=== PATIENT | female | born 1955 | race American Indian/Alaskan Native ===

== ENCOUNTER 2018-08-26 18:58 | Emergency (ER) | payer BC, OTHER ==
[2018-08-26] MEDS ORDERED: Sodium Chloride 0.9% 1,000 ML ONE (19:19)
[2018-08-26] MEDS ORDERED: Sodium Chloride 0.9% 1,000 ML IV ONE (19:20)
[2018-08-26] MEDS ORDERED: Sodium Chloride 0.9% 10 ML Syringe FLUSH PRN (19:32)
--- NOTE | 2018-08-26 20:01 | EDM.PDOC ---
Addendum entered and electronically signed by Juvencio Oglesyb MD 08/27/18 15:14 : The patient was having some withdrawal symptoms at the [facility] so I sent over some ativan and zofran to the pharmacy. Original Note: ED HPI GENERAL MEDICAL PROBLEM <Kb Venegas - Last Filed: 08/27/18 01:36> <Juvencio Oglesby - Last Filed: 08/27/18 12:31> - General Source of Information: Reports: Patient, EMS History Limitations: Reports: Altered Mental Status, Intoxication <Geeta Santana - Last Filed: 08/28/18 12:47> - General Chief Complaint: Neurological Problem Stated Complaint: [facility] Time Seen by Provider: 08/26/18 19:31 - History of Present Illness INITIAL COMMENTS - FREE TEXT/NARRATIVE: 53-year-old female is brought in by [facility]. Patient is unable to provide any reliable history. She believes she is in [place]. She knows her name and date of but does not know the month, date or year. She does not know that she is in the hospital nor additional that she is in [place]. Per EMS she was found wandering around gas station. History that she had fallen. She is intoxicated. patient has never been seen on her hospital before. We have no history on her. She is not reliable historian. She answers yes to all questions and says she "loves me" on multiple occasions. (Geeta Santana) - Related Data Allergies Allergy/AdvReac Type Severity Reaction Status Date / Time fluoxetine [From Prozac] Allergy Cannot Verified 08/26/18 19:08 Remember iodine Allergy Cannot Verified 08/26/18 19:08 Remember procaine [From Novocain] Allergy Cannot Verified 08/26/18 19:08 Remember Home Meds: Home Meds LORazepam [Ativan] 1 mg PO DAILY #18 tablet 08/27/18 [Rx] Ondansetron [Zofran ODT] 4 mg PO Q6H PRN #20 tab.dis 08/27/18 [Rx] Past Medical History - Past Surgical History Female Surgical History: Reports: Hysterectomy <Geeta Santana - Last Filed: 08/28/18 12:47> Social & Family History - Tobacco Use Smoking Status *Q: Never Smoker Second Hand Smoke Exposure: No - Caffeine Use Caffeine Use: Reports: None - Recreational Drug Use Recreational Drug Use: No <MaxGeeta - Last Filed: 08/28/18 12:47> ED ROS GENERAL - Review of Systems Review Of Systems: Unable To Obtain <DebbiesummerGeeta cullen - Last Filed: 08/28/18 12:47> - Physical Exam Exam: See Below Exam Limited By: Intoxication General Appearance: Alert, WD/WN, No Apparent Distress Eye Exam: Bilateral Eye: Other (Right pupil is reactive to light, left pupil is sluggish to react to light, pupils are equal and round) Ears: Normal External Exam, Normal Canal, Hearing Grossly Normal, Normal TMs, Other (No hemotympanums) Nose: Normal Inspection, No Blood Throat/Mouth: Normal Inspection, Normal Lips, Normal Oropharynx, Normal Voice, No Airway Compromise Head Exam: Atraumatic, Normocephalic Neck: Normal Inspection, Supple, Non-Tender, Full Range of Motion Respiratory/Chest: No Respiratory Distress, Lungs Clear, Normal Breath Sounds, Chest Non-Tender Cardiovascular: Normal Peripheral Pulses, Regular Rate, Rhythm, No Murmur GI/Abdominal: Normal Bowel Sounds, Soft, Non-Tender Neuro Exam (Abbreviated): Alert, Confused, Other (Patient is orientated to person but not place or time) Extremities: Normal Inspection (No obvious abnormalities to the extremities), Limited Range of Motion (Right shoulder) Skin Exam: Warm, Dry, Normal Color <MaxJonaa Kimberlyn - Last Filed: 08/28/18 12:47> EKG INTERPRETATION <Kb Venegas - Last Filed: 08/27/18 01:36> <Juvencio Oglesby - Last Filed: 08/27/18 12:31> EKG Date: 08/26/18 Time: 19:47 Rhythm: NSR Rate (Beats/Min): 69 [place]: Normal P-Wave: Present QRS: Normal ST-T: Normal QT: Normal Comparison: NA - No Prior EKG <MaxGeeta Kimberlyn - Last Filed: 08/28/18 12:47> EKG Interpretation Comments: NSR at 69 bpm. No acute changes. Reviewed by myself and Dr. Venegas. (Geeta Santana) Course <KeniajeffKb Angela - Last Filed: 08/27/18 01:36> <Juvencio Oglesby - Last Filed: 08/27/18 12:31> <Geeta Santana - Last Filed: 08/28/18 12:47> - Vital Signs Last Recorded V/S: Last Vital Signs Temp 97.1 F 08/26/18 19:04 Pulse 72 08/26/18 19:04 Resp 16 08/26/18 19:04 BP 80/53 L 08/26/18 19:04 Pulse Ox 92 L 08/26/18 19:04 - Orders/Labs/Meds Labs: Laboratory Tests 08/26/18 08/26/18 08/26/18 Range/Units 19:00 19:00 19:00 WBC 5.36 (3.98-10.04) K/mm3 RBC 3.43 L (3.98-5.22) M/mm3 Hgb 10.7 L (11.2-15.7) gm/L Hct 31.6 L (34.1-44.9) % MCV 92.1 (79.4-94.8) fl MCH 31.2 (25.6-32.2) pg MCHC 33.9 (32.2-35.5) g/dl RDW Std Deviation 42.4 (36.4-46.3) fL Plt Count 364 (182-369) K/mm3 MPV 8.6 L (9.4-12.3) fl Neutrophils % (Manual) 54 (40-60) % Band Neutrophils % 0 (0-10) % Lymphocytes % (Manual) 44 H (20-40) % Atypical Lymphs % 0 % Monocytes % (Manual) 2 (2-10) % Eosinophils % (Manual) 0 L (0.7-5.8) % Basophils % (Manual) 0 L (0.1-1.2) Toxic Granulation 2+ moderate Platelet Estimate Adequate Plt Morphology Comment Normal Anisocytosis 1+ slight RBC Morph Comment Not Reportable PT 10.2 (9.5-12.1) SECONDS INR 0.93 APTT 29 (24-31) SECONDS Sodium 134 L (136-145) mEq/L Potassium 3.8 (3.5-5.1) mEq/L Chloride 99 (98-107) mEq/L Carbon Dioxide 25 (21-32) mEq/L Anion Gap 13.8 (5-15) BUN 20 H (7-18) mg/dL Creatinine 1.2 H (0.55-1.02) mg/dL Est Cr Clr Drug Dosing 42.51 mL/min Estimated GFR (MDRD) 46 (>60) mL/min BUN/Creatinine Ratio 16.7 (14-18) Glucose 103 (80-115) mg/dL Calcium 8.2 L (8.5-10.1) mg/dL Total Bilirubin 0.2 (0.2-1.0) mg/dL AST 15 (15-37) U/L ALT 22 (14-59) U/L Alkaline Phosphatase 64 (46-116) U/L Ammonia (11-32) umol/L Total Protein 6.2 L (6.4-8.2) g/dl Albumin 3.1 L (3.4-5.0) g/dl Globulin 3.1 gm/dL Albumin/Globulin Ratio 1.0 (1-2) Lipase (73-393) U/L Urine Color (Yellow) Urine Appearance (Clear) Urine pH (5.0-8.0) Ur Specific [place] (1.005-1.030) Urine Protein (Negative) Urine Glucose (UA) (Negative) Urine Ketones (Negative) Urine Occult Blood (Negative) Urine Nitrite (Negative) Urine Bilirubin (Negative) Urine Urobilinogen (0.2-1.0) Ur Leukocyte Esterase (Negative) Urine RBC (0-5) /hpf Urine WBC (0-5) /hpf Ur Squamous Epith Cells (0-5) /hpf Urine Bacteria (FEW) /hpf Hyaline Casts (0-5) /lpf Urine Mucus (FEW) /hpf Urine Opiates Screen (TAZEQS=127) Ur Buprenorphine Scrn (CUTOFF=10) Ur Oxycodone Screen (RVF4RE=082) Urine Methadone Screen (IOJEEF=447) Ur Propoxyphene Screen (IQGNMW=189) Ur Barbiturates Screen (LEOSFQ=031) Ur Tricyclics Screen (UAGHCF=843) Ur Phencyclidine Scrn (CUTOFF=25) Ur Amphetamine Screen (OLVCXR=587) U Methamphetamines Scrn (ZSNHXB=119) U Benzodiazepines Scrn (BPFIMT=562) U Cocaine Metab Screen (NACXHY=767) U Marijuana (THC) Screen (CUTOFF=50) Ethyl Alcohol 0.25 (0.00) gm% 08/26/18 08/26/18 08/26/18 Range/Units 19:00 19:55 21:28 WBC (3.98-10.04) K/mm3 RBC (3.98-5.22) M/mm3 Hgb (11.2-15.7) gm/L Hct (34.1-44.9) % MCV (79.4-94.8) fl MCH (25.6-32.2) pg MCHC (32.2-35.5) g/dl RDW Std Deviation (36.4-46.3) fL Plt Count (182-369) K/mm3 MPV (9.4-12.3) fl Neutrophils % (Manual) (40-60) % Band Neutrophils % (0-10) % Lymphocytes % (Manual) (20-40) % Atypical Lymphs % % Monocytes % (Manual) (2-10) % Eosinophils % (Manual) (0.7-5.8) % Basophils % (Manual) (0.1-1.2) Toxic Granulation Platelet Estimate Plt Morphology Comment Anisocytosis RBC Morph Comment PT (9.5-12.1) SECONDS INR APTT (24-31) SECONDS Sodium (136-145) mEq/L Potassium (3.5-5.1) mEq/L Chloride (98-107) mEq/L Carbon Dioxide (21-32) mEq/L Anion Gap (5-15) BUN (7-18) mg/dL Creatinine (0.55-1.02) mg/dL Est Cr Clr Drug Dosing mL/min Estimated GFR (MDRD) (>60) mL/min BUN/Creatinine Ratio (14-18) Glucose (80-115) mg/dL Calcium (8.5-10.1) mg/dL Total Bilirubin (0.2-1.0) mg/dL AST (15-37) U/L ALT (14-59) U/L Alkaline Phosphatase (46-116) U/L Ammonia 12 (11-32) umol/L Total Protein (6.4-8.2) g/dl Albumin (3.4-5.0) g/dl Globulin gm/dL Albumin/Globulin Ratio (1-2) Lipase 153 (73-393) U/L Urine Color (Yellow) Urine Appearance (Clear) Urine pH (5.0-8.0) Ur Specific [place] (1.005-1.030) Urine Protein (Negative) Urine Glucose (UA) (Negative) Urine Ketones (Negative) Urine Occult Blood (Negative) Urine Nitrite (Negative) Urine Bilirubin (Negative) Urine Urobilinogen (0.2-1.0) Ur Leukocyte Esterase (Negative) Urine RBC (0-5) /hpf Urine WBC (0-5) /hpf Ur Squamous Epith Cells (0-5) /hpf Urine Bacteria (FEW) /hpf Hyaline Casts (0-5) /lpf Urine Mucus (FEW) /hpf Urine Opiates Screen Negative (SZFMMS=606) Ur Buprenorphine Scrn Negative (CUTOFF=10) Ur Oxycodone Screen Negative (ADS8OB=372) Urine Methadone Screen Negative (XTBISV=914) Ur Propoxyphene Screen Negative (XHRAYY=564) Ur Barbiturates Screen Negative (YDOQOA=599) Ur Tricyclics Screen Negative (PZTPNA=718) Ur Phencyclidine Scrn Negative (CUTOFF=25) Ur Amphetamine Screen Negative (EKHAFC=274) U Methamphetamines Scrn Negative (XIMBWF=274) U Benzodiazepines Scrn Negative (JIOVTH=037) U Cocaine Metab Screen Negative (JJOCSE=649) U Marijuana (THC) Screen Negative (CUTOFF=50) Ethyl Alcohol (0.00) gm% 08/26/18 Range/Units 21:28 WBC (3.98-10.04) K/mm3 RBC (3.98-5.22) M/mm3 Hgb (11.2-15.7) gm/L Hct (34.1-44.9) % MCV (79.4-94.8) fl MCH (25.6-32.2) pg MCHC (32.2-35.5) g/dl RDW Std Deviation (36.4-46.3) fL Plt Count (182-369) K/mm3 MPV (9.4-12.3) fl Neutrophils % (Manual) (40-60) % Band Neutrophils % (0-10) % Lymphocytes % (Manual) (20-40) % Atypical Lymphs % % Monocytes % (Manual) (2-10) % Eosinophils % (Manual) (0.7-5.8) % Basophils % (Manual) (0.1-1.2) Toxic Granulation Platelet Estimate Plt Morphology Comment Anisocytosis RBC Morph Comment PT (9.5-12.1) SECONDS INR APTT (24-31) SECONDS Sodium (136-145) mEq/L Potassium (3.5-5.1) mEq/L Chloride (98-107) mEq/L Carbon Dioxide (21-32) mEq/L Anion Gap (5-15) BUN (7-18) mg/dL Creatinine (0.55-1.02) mg/dL Est Cr Clr Drug Dosing mL/min Estimated GFR (MDRD) (>60) mL/min BUN/Creatinine Ratio (14-18) Glucose (80-115) mg/dL Calcium (8.5-10.1) mg/dL Total Bilirubin (0.2-1.0) mg/dL AST (15-37) U/L ALT (14-59) U/L Alkaline Phosphatase (46-116) U/L Ammonia (11-32) umol/L Total Protein (6.4-8.2) g/dl Albumin (3.4-5.0) g/dl Globulin gm/dL Albumin/Globulin Ratio (1-2) Lipase (73-393) U/L Urine Color Yellow (Yellow) Urine Appearance Clear (Clear) Urine pH 6.5 (5.0-8.0) Ur Specific [place] 1.015 (1.005-1.030) Urine Protein Negative (Negative) Urine Glucose (UA) Negative (Negative) Urine Ketones Negative (Negative) Urine Occult Blood Negative (Negative) Urine Nitrite Negative (Negative) Urine Bilirubin Negative (Negative) Urine Urobilinogen 0.2 (0.2-1.0) Ur Leukocyte Esterase Negative (Negative) Urine RBC 0-5 (0-5) /hpf Urine WBC 0-5 (0-5) /hpf Ur Squamous Epith Cells 0-5 (0-5) /hpf Urine Bacteria Few (FEW) /hpf Hyaline Casts 0-5 (0-5) /lpf Urine Mucus Few (FEW) /hpf Urine Opiates Screen (EXGTRN=474) Ur Buprenorphine Scrn (CUTOFF=10) Ur Oxycodone Screen (UEW4RQ=053) Urine Methadone Screen (AYVTUJ=733) Ur Propoxyphene Screen (HRDWTG=770) Ur Barbiturates Screen (GHSRDY=489) Ur Tricyclics Screen (YTLFGM=976) Ur Phencyclidine Scrn (CUTOFF=25) Ur Amphetamine Screen (DSWZXF=903) U Methamphetamines Scrn (GCUPNW=040) U Benzodiazepines Scrn (IXPYBE=812) U Cocaine Metab Screen (UZYEXA=141) U Marijuana (THC) Screen (CUTOFF=50) Ethyl Alcohol (0.00) gm% Meds: Medications Discontinued Medications Generic Name Dose Route Start Last Admin Trade Name Freq PRN Reason Stop Dose Admin Acetaminophen 975 mg 08/27/18 12:24 08/27/18 13:12 Tylenol PO 08/27/18 12:25 975 mg NOW ONE Administration Sodium Chloride 1,000 mls @ 999 mls/hr 08/26/18 19:20 08/26/18 19:23 Normal Saline IV 08/26/18 20:20 999 mls/hr ONETIME ONE Administration Sodium Chloride Confirm 08/26/18 19:19 08/26/18 19:23 Normal Saline Administered 08/26/18 19:20 Not Given Dose 1,000 mls @ as directed .ROUTE .STK-MED ONE Sodium Chloride 10 ml 08/26/18 19:32 08/26/18 19:33 Saline Flush FLUSH 10 ml ASDIRECTED PRN Administration Keep Vein Open - Radiology Interpretation Free Text/Narrative:: 1 view chest x-ray shows no acute intrathoracic process. Formal radiolofy read pending. Xray of the right shoulder and right humerus shows a fracture of the greater tubericle of the right proximal humerus CT cervical spine Technique: Multiple axial sections were obtained from above C1 inferiorly to the bottom of T2. Reconstructed sagittal and coronal images were obtained. Findings: Degenerative change is noted between the dens and anterior arch of C1. Mild disc space narrowing is noted at C3-4 and C4-5. Severe disc space narrowing is noted at C5-6 and C6-7. Slight posterior osteophytes are noted C5- 6 and C6-7. Anterior osteophytes are seen at the areas of disc space narrowing which are most prominent C5-6 and C6-7. Kyphosis is present on the lateral view which may be positional. Mild degenerative apophyseal change is scattered throughout the spine. No fracture is identified. No abnormal subluxation is appreciated. Mild left-sided neural foraminal stenosis is noted at C5-6. Mild bilateral neural foraminal stenosis noted at C6-7. Degenerative spurring is noted within the uncovertebral joints throughout the cervical spine. Impression: 1. Degenerative change as noted above. Nothing acute is appreciated on CT study of the cervical spine. Head CT Technique: Multiple axial sections through the brain were obtained. Intravenous contrast was not utilized. Comparison: No previous intracranial imaging. 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 Within this limitation there is no acute intracranial hemorrhage being seen. Areas of encephalomalacia are seen within both frontal lobes, worse on the left side. Area of encephalomalacia is also noted within the posterior right parietal region. No other abnormal parenchymal densities are appreciated. Ventricles along with basal cisterns and sulci over the convexities are mildly prominent. Bone window settings were reviewed which shows no acute calvarial abnormality. Impression: 1. 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 2. Areas of encephalomalacia as noted above. 3. Mild generalized atrophy. 4. Nothing acute is seen on noncontrast head CT exam. (Geeta Santana) - Re-Assessments/Exams Free Text/Narrative Re-Assessment/Exam: 08/27/18 01:37 Assumed care at 11 PM this shift as the prior provider was off shift. This 63- year-old female was found wandering in intoxicated state in [facility]. It was reported that she had fallen. She has been drinking and is intoxicated. Complete workup is unrevealing for any underlying medical causes of her condition. The patient did not meet criteria for admission, therefore she will stay in the emergency room and we will have social work get involved in the morning. The patient has remained stable and is currently sleeping. (Kb Venegas) 08/27/18 12:31 [facility] will take the patient at the [facility]. She is not on any medications. ( Juvencio Oglesby) Departure <Kb Venegas - Last Filed: 08/27/18 01:36> - Departure Time of Disposition: 12:35 Condition: Good - Discharge Information *PRESCRIPTION DRUG MONITORING PROGRAM REVIEWED*: Not Applicable *COPY OF PRESCRIPTION DRUG MONITORING REPORT IN PATIENT TIMBO: Not Applicable <Juvencio Oglesby - Last Filed: 08/27/18 12:31> <Geeta Santana - Last Filed: 08/28/18 12:47> - Departure Disposition: Home, Self-Care 01 Clinical Impression: Substance abuse Alcoholic intoxication Qualifiers: Complication of substance-induced condition: uncomplicated Qualified Code(s): F10.920 - Alcohol use, unspecified with intoxication, uncomplicated - Discharge Information Prescriptions: LORazepam [Ativan] 1 mg PO DAILY #18 tablet Ondansetron [Zofran ODT] 4 mg PO Q6H PRN #20 tab.dis PRN Reason: Nausea\\vomiting Instructions: Substance Use Disorder, Alcohol Intoxication, [id number] Referrals: Shannen Newman RN [Primary Care Provider] - Forms: ED Department Discharge Additional Instructions: Go directly to the [facility]. Please return if you are worse.
--- NOTE | 2018-08-26 21:05 | CT ---
CT cervical spine Technique: Multiple axial sections were obtained from above C1 inferiorly to the bottom of T2. Reconstructed sagittal and coronal images were obtained. Findings: Degenerative change is noted between the dens and anterior arch of C1. Mild disc space narrowing is noted at C3-4 and C4-5. Severe disc space narrowing is noted at C5-6 and C6-7. Slight posterior osteophytes are noted C5-6 and C6-7. Anterior osteophytes are seen at the areas of disc space narrowing which are most prominent C5-6 and C6-7. Kyphosis is present on the lateral view which may be positional. Mild degenerative apophyseal change is scattered throughout the spine. No fracture is identified. No abnormal subluxation is appreciated. Mild left-sided neural foraminal stenosis is noted at C5-6. Mild bilateral neural foraminal stenosis noted at C6-7. Degenerative spurring is noted within the uncovertebral joints throughout the cervical spine. Impression: 1. Degenerative change as noted above. Nothing acute is appreciated on CT study of the cervical spine. Diagnostic code #2
--- NOTE | 2018-08-26 21:05 | CT ---
Head CT Technique: Multiple axial sections through the brain were obtained. Intravenous contrast was not utilized. Comparison: No previous intracranial imaging. 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 Within this limitation there is no acute intracranial hemorrhage being seen. Areas of encephalomalacia are seen within both frontal lobes, worse on the left side. Area of encephalomalacia is also noted within the posterior right parietal region. No other abnormal parenchymal densities are appreciated. Ventricles along with basal cisterns and sulci over the convexities are mildly prominent. Bone window settings were reviewed which shows no acute calvarial abnormality. Impression: 1. 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 2. Areas of encephalomalacia as noted above. 3. Mild generalized atrophy. 4. Nothing acute is seen on noncontrast head CT exam. Diagnostic code #3
--- NOTE | 2018-08-27 08:56 | CR ---
Chest: Frontal view of the chest was obtained. Comparison: No prior chest x-ray. Heart size and mediastinum are normal. Lungs are clear. Sunol-Sachs deformity is noted within the right shoulder. No acute bony abnormality is identified on this portable chest x-ray. Impression: 1. Nothing acute is appreciated. Diagnostic code #2
--- NOTE | 2018-08-27 08:57 | CR ---
Right humerus: Two views of the right humerus were obtained. Shoulder findings as noted previously are again seen. No acute fracture or other abnormality is appreciated. Impression: 1. Shoulder findings as previously described on shoulder study. 2. Nothing acute is appreciated on two-view right humerus exam. Diagnostic code #2
--- NOTE | 2018-08-27 08:59 | CR ---
Right shoulder: Three views of the right shoulder were obtained. Comparison: No prior shoulder study. Hill-Sachs deformity is noted. Bony density noted inferior to this defect most likely due to old ununited fracture fragment. No acute fracture, dislocation or other bony abnormality is seen. Impression: 1. Findings as noted above which are felt compatible with Hill-Sachs deformity with old displaced ununited fracture fragment. 2. Nothing acute is identified. Diagnostic code #3
[2018-08-27] MEDS ORDERED: Acetaminophen 325 MG Tab PO ONE (12:24)
== END 2018-08-27 13:15 | disposition home or self-care (01) ==
LOC: JD.ED 18:58
DX: F10.120 Alcohol abuse with intoxication, uncomplicated (principal); Y90.8 Blood alcohol level of 240 mg/100 ml or more; F19.10 Other psychoactive substance abuse, uncomplicated; Z88.8 Allergy status to other drugs, medicaments and biological substances; Z79.899 Other long term (current) drug therapy
CPT/HCPCS: 36415; 70450; 71045; 72125; 73030; 73060; 80053; 80306; 81001; 82140; 83690; 85007; 85027; 85610; 85730; 93005; 96360; 99285; A9270; G0480; J7040; 93010; 99283